=== PATIENT | female | born 1990 | race Hispanic/Latino ===

== ENCOUNTER 2020-12-23 10:51 | Day surgery (SDC) | payer OTHER ==
[2020-12-18 09:56] LABS: Absolute Lymphocytes (CBC) 1.7 K/uL (0.7-4.9); Basophils % 0.2 % (0-1.3); Hematocrit 41.3 % (36.0-45.0); Lymphocytes % 24.7 % (15.3-44.8); MPV 8.5 fL (7.6-11.3); RBC Red Blood Cell Count 4.52 M/uL (3.86-4.86)
[2020-12-18 09:59] LABS: Urine Appearance CLOUDY (Clear); Urine Bilirubin NEGATIVE (Negative); Urine Blood NEGATIVE (Negative); Urine Color YELLOW (Yellow); Urine Glucose NEGATIVE (Negative); Urine Protein NEGATIVE (Negative); Urine Urobilinogen 0.2 mg/dL (0.2-1.0)
[2020-12-18 10:13] LABS: BUN Blood Urea Nitrogen 12 mg/dL (7-18); Bicarbonate 26 mmol/L (21-32); Glucose Level 101 mg/dL (74-106); Potassium 3.8 mmol/L (3.5-5.1); Sodium Level 139 mmol/L (136-145)
[2020-12-18 10:23] LABS: Urine Microscopic Reflex ORDER UMIC
[2020-12-18 10:27] LABS: Urine Bacteria >50 /HPF (<20); Urine Mucus LIGHT /HPF (NONE SEEN); Urine RBC <5 /HPF (NONE SEEN)
[2020-12-23 11:31] VITALS: O2SAT 100
[2020-12-23] MEDS ORDERED: Ringers Lactate 1,000 ML IV ONE ×2 (11:32→16:08)
[2020-12-23] MEDS ORDERED: SCOPOLAMINE HYDROBROMIDE PATCH TD ONE (11:32)
[2020-12-23] MEDS ORDERED: propofoL 200 MG/20 ML VIAL IV ONE (13:30)
[2020-12-23] MEDS ORDERED: GLYCOPYRROLATE 0.2 MG/ML SYR ONE (13:31)
[2020-12-23] MEDS ORDERED: LIDOCAINE 2% MPF 5 ML VIAL ONE (13:31)
[2020-12-23] MEDS ORDERED: FENTANYL CITR 250 MCG/5 ML ONE (13:31)
[2020-12-23] MEDS ORDERED: MIDAZOLAM HCL 2 MG/2 ML INJ ONE (13:32)
[2020-12-23] MEDS ORDERED: ONDANSETRON 4 MG/2 ML VIAL ONE (13:34)
[2020-12-23] MEDS ORDERED: dexAMETHasone 10 MG/ML VIAL ONE (13:36)
[2020-12-23] MEDS ORDERED: ROCURONIUM 50 MG/5 ML VIAL IV ONE (14:02)
[2020-12-23] MEDS ORDERED: BUPIVACAINE 0.25% PF 30 ML VIAL ONE (14:02)
[2020-12-23] MEDS: CEFAZOLIN/SWI 1gm 1 GM/10 ML SYR ONE ×2 (14:12→14:15)
--- NOTE | 2020-12-23 15:08 | P.OP ---
Preoperative diagnosis: Intra-abodminal adhesions Postoperative diagnosis: Intra-abodminal adhesions Primary procedure: Laparoscopic Adhesiolysis Anesthesia: GETA Estimated blood loss: <1cc Specimen: none Findings: omental adhesions to abdominal wall, no hernias noted Complications: None Transferred to: Other (See Dr. Maravilla note)
[2020-12-23] MEDS ORDERED: KETOROLAC 30 MG/ML INJ ONE (15:30)
[2020-12-23] MEDS ORDERED: NEOSTIGMINE 1 MG/ML -5 ML ONE (15:31)
--- NOTE | 2020-12-23 15:33 | OP ---
Date of Procedure: 12/23/2020 Surgeon: Benjie Pool MD, MD Preoperative Diagnosis: Intraabdominal adhesions. Postoperative Diagnosis: Intraabdominal adhesions. Procedure Performed: Laparoscopic adhesiolysis. Anesthesia: General endotracheal. Estimated Blood Loss: Less than 1 mL. Specimen: None. Findings: Omental adhesions to abdominal wall. No hernias noted. Complications: None. The patient did well at the end of the procedure. All counts were correct at my portion of procedure. Please see Dr. Maravilla's note for full details. Co-surgeon: Yudith Maravilla MD Procedure In Detail: After informed consent was obtained, the patient was brought to the operating r oom, prepped and draped in the usual sterile fashion after adequate anesthesia achieved. Dr. Josh mackenzie placed several trocars laparoscopically, 1 was a 10 mm trocar in the periumbilical area, 1 was a corral prapubic 5 mm trocar, 1 was in left lower quadrant 5 mm trocar, and the area was inspected. The pelv is was inspected and found to have omental adhesions to the anterior abdominal wall. At this point, I assumed care of the patient and then with LigaSure device took down omental adhesions from the ante rior bowel wall. No hernias were appreciated. No additional pathologic findings. No interloop adhe sions were noted. The bowel appeared to be free and without any issue on gross examination laparosco pically. At this point, after laparoscopic adhesiolysis was completed, I passed the case back to Dr. Maravilla. Please see Dr. Maravilla's note for full details regarding her aspect of the operation. All counts were correct at the end of the case f or my portion. TK/MODL Voice ID: [id number] Report ID: [id number]
[2020-12-23] MEDS: HYDROMORPHONE HCL 1 MG/ML INJ ONE ×2 (15:58→16:11)
[2020-12-23] MEDS ORDERED: NAPROXEN 500 MG PO PRN (16:10)
[2020-12-23] MEDS ORDERED: PROMETHAZINE INJ 25 MG/ML AMP IV PRN (16:12)
[2020-12-23] MEDS ORDERED: MEPERIDINE HCL 25 MG/ML SYR IM PRN (16:12)
[2020-12-23] MEDS ORDERED: IBUPROFEN 200 MG TAB PO PRN (16:12)
[2020-12-23] MEDS ORDERED: HYDROCODONE/APAP 5/325 MG TAB PO PRN (16:12)
[2020-12-23] MEDS ORDERED: PROMETHAZINE INJ 25 MG/ML AMP ONE (16:18)
--- NOTE | 2020-12-23 16:20 | P.BOP ---
Preoperative diagnosis: irreg periods,LLQ pain dyspareunia,fam h/o BRCA mutation Postoperative diagnosis: same Primary procedure: diag hysteroscopy d/c;diag lapsc BS Director Of Database Marketing: STEPHENIE SHARP Estimated blood loss: <1cc Specimen: bilateral tubes, EMC Findings: scar left tube, right hydrosalpinx Anesthesia: General Complications: None Transferred to: Recovery Room (See Dr. Maravilla note) Condition: Good
[2020-12-23 16:59] VITALS: BP 104/60; TEMP 97.4
[2020-12-23] MEDS ORDERED: HYDROCODONE/APAP 5/325 MG TAB ONE (17:11)
--- NOTE | 2020-12-23 17:27 | OP ---
Date of Procedure: 12/23/2020 Surgeon: Yudith Maravilla MD Applied Research Director: Twyla Echavarria. Preoperative Diagnoses: Left lower quadrant pain, deep dyspareunia, irregular bleeding and family hi story of BRCA gene mutation. Postoperative Diagnoses: Adhesions in the left lower quadrant, mild right hydrosalpinx, absent left ovary, left lower quadrant pain, deep dyspareunia, irregular bleeding and family history of BRCA gene mutation. Procedures Performed: Diagnostic hysteroscopy, dilation and curettage, diagnostic laparoscopy, bilat eral salpingectomy and right ovarian cyst drainage. Specimens: Bilateral tubes and endometrial curettings. Complications: No complications. Drains: No drains. Condition: Stable. Findings: Adhesions in the left lower quadrant were noted. Lysis of adhesions by Dr. Pool. Then , bilateral salpingectomy for the tubes. There were tubal adhesions to the left side. Very minimal adhesions of the sigmoid to the left lateral wall. No endometriosis was noted in the entire pelvic c avity. On hysteroscopy, the lining of the uterus was unremarkable and the cavity anteflexed. The appendix was normal. No other pathology was noted. Endometriosis was absent. Indications: The patient is a 30-year-old female who completed childbearing,. family history of BRCA gene mutation, history of irregular bleeding, also complaining of left lower quadrant pain and deep dyspareunia, some GI symptoms including constipation, the patient on Linzess. The after evaluating w ith ultrasound, no adnexal masses were noted. Given the amount of pain, 1 g of Ancef was given and t hen we went ahead. She did not respond to any treatment for PID. So, we then consented her for a di agnostic laparoscopy, diagnostic hysteroscopy for GI and adhesion evaluation. Dr. Pool was also i nvolved to rule out a hernia as well. She was consented and taken to the OR for hysteroscopy, possib le sampling, laparoscopy, bilateral salpingectomy for risk reduction of ovarian cancer as the patient was completely and permanently sterilized and then endometriosis . Description Of Procedure: After informed consent was verified, she was taken back to OR, placed in s upine fashion on the operating table. General anesthesia was given. 1 g of Ancef was given. SCDs w ere started, placed in a dorsal lithotomy position. Abdomen, vulva, vagina, and perineum prepped and draped in a sterile fashion. Cervantes was placed to drain the bladder. Uterine manipulator was introd uced into place and fixed in place. A 1 cm infraumbilical incision was made with a scalpel using the open laparoscopy technique. Fascia was incised and tagged with 0 Vicryl sutures. Peritoneum was entered sharply. S-retractors were levi malena. Elaine was introduced. site of entry was checked. There were significant left lower quadrant adhesions from the omentum that were taken down with the help of Dr. Pool. There were some adhesi ons in the left lateral wall. No endometriosis was seen, very minor of the colon to the side, but no need for removal of these as they seem to be ready to reattach if removed. No evidence of any endom etriosis on close examination of the entire peritoneal cavity. Five suprapubic and left lower quadra nt ports were placed right next to the adhesions. For the rest of the note, please refer to Dr. Houston donis's note. Then, once the adhesions were taken down by him, went ahead to take down the adhesions o f the left tube from the lateral wall and then salpingectomy was performed on the left. The Falope r ing was also removed. There was another free-floating Falope ring on the omentum, which was removed and then the slightly swollen right tube was removed. No evidence of endometriosis on close examinat ion of the posterior cul-de-sac, lateral galeano of the anterior abdominal wall, anterior wall of the u terus and posterior wall of the uterus. So after thorough irrigation and suction were performed, the tubes were retrieved through the suprapubic port site. She was cleaned up and the right ovary appea red to be completely intact. There was a small cyst on this, incised with the help of scissors and t he cyst was drained. It appeared to be physiological one. Before I exited the peritoneal cavity, the trocars were pulled under direct vision. Injection of Mar william was given both at the fascia and skin. After the gas was desufflated, the scope was removed. Elaine was removed. The fascia was tied with the help of two 0 Vicryl sutures, tagged, and then 4-0 Vicryl interrupted sutures for closure of all skin incisions. Then, manipulator and Cervantes were remov ed. Speculum placed to expose the cervix. Anterior lip was grasped with 2 Allis clamps. Diagnostic Slim Line hysteroscope was utilized to traverse the cervical canal under direct vision into the endometria l cavity. Slightly thick tissue, but endometrium from the manipulation. Curettage was pe rformed after the scope was removed. These were handed off for permanent pathology. Instruments wer e removed. Instrument and sponge counts were correct at the end of the case. The patient tolerated the procedure well. She will follow up with me in 1 week. EBL minimal. SK/MODL Voice ID: [id number] Report ID: [id number]
[2020-12-24] MEDS ORDERED: HOME MED 1 EA UNK (Linaclotide [Linzess] 290 MCG Capsule) PO SCH (09:00)
== END 2020-12-23 17:45 | disposition home or self-care (01) ==
LOC: OR 10:51
PROVIDERS: ATTEND Obstetrics & Gynecology
PROC: 0UJD8ZZ Inspection of Uterus and Cervix, Via Natural or Artificial Opening Endoscopic (ICD-10-PCS; 2020-12-23)
PROC: 0UT74ZZ Resection of Bilateral Fallopian Tubes, Percutaneous Endoscopic Approach (ICD-10-PCS; 2020-12-23)
PROC: 0DNU0ZZ Release Omentum, Open Approach (ICD-10-PCS; 2020-12-23)
PROC: 0U904ZX Drainage of Right Ovary, Percutaneous Endoscopic Approach, Diagnostic (ICD-10-PCS; 2020-12-23)
PROC: 0UDB7ZX Extraction of Endometrium, Via Natural or Artificial Opening, Diagnostic (ICD-10-PCS; principal; 2020-12-23 12:30)
DX: N94.12 Deep dyspareunia (principal); N93.9 Abnormal uterine and vaginal bleeding, unspecified; N92.6 Irregular menstruation, unspecified; Z80.41 Family history of malignant neoplasm of ovary; R10.32 Left lower quadrant pain; K66.0 Peritoneal adhesions (postprocedural) (postinfection); N83.201 Unspecified ovarian cyst, right side; Z20.822 Contact with and (suspected) exposure to COVID-19
CPT/HCPCS: 58558; 49322; 58661; 87088; 85025; 87086; 80048; 36415; 86900; 86850; 81025; 86901; 88302; 88305; U0002; J2704; J2550; J2250; J3010; J1100; J1170; J2710; J0690; J7120 ×2; J2405; 81003; 81015